=== PATIENT | female | born 1965 | race Caucasian/White ===

== ENCOUNTER 2020-07-11 10:21 | Emergency (ER) | payer MEDICAID ==
[~2020-07-11] VITALS: Ht 160 cm; Wt 76.5 kg
[~2020-07-11 10:21] MED LIST: CIPR-260 PO; PHEN-786 PO
[2020-07-11 11:32] LABS: CLARITY,URINE SLIGHTLY CLOUDY (Clear); COLOR,URINE STRAW (Yellow); GLUCOSE, URINE NEGATIVE (Neg); KETONES,URINE NEGATIVE (Neg); LEUKOCYTE ESTERASE ,URINE MODERATE (Neg); NITRITES, URINE NEGATIVE (Neg); OCCULT BLOOD,URINE SMALL (Neg); PH,URINE 5.5 (4.8-8.0); PROTEIN,URINE NEGATIVE (Neg); UROBILINOGEN,URINE 0.2 E.U/dL (0.2-1.0)
[2020-07-11 11:41] LABS: UA COLLECTION TYPE CLN CATCH MIDSTREAM
[2020-07-11 11:43] LABS: BACTERIA,URINE FEW /HPF (Neg); MUCUS STRANDS FEW /LPF (Neg); RBC,URINE 0-2 /HPF (0-2); SQUAMOUS EPITHELIAL CELL,UR FEW /LPF (FEW); WBC,URINE 20-30 /HPF (0-4)
[2020-07-11] MEDS ORDERED: ondansetron/PF 4mg/2ml inj IV ONE (11:45)
[2020-07-11] MEDS ORDERED: ketorolac trometh. 30mg/ml inj. IV ONE (11:45)
[2020-07-11] MEDS ORDERED: normal saline 1000ML IV soln IVB ONE (11:45)
[2020-07-11 12:18] LABS: BASOPHILS # (AUTO) 0.1 X10'3 (0-0.2); BASOPHILS % (AUTO) 0.5 % (0-1); EOSINOPHILS # (AUTO) 0.2 X10'3 (0-0.9); EOSINOPHILS % (AUTO) 2.4 % (0-6); HEMATOCRIT 37.5 % (35.0-45.0); HEMOGLOBIN 12.8 g/dl (12.0-16.0); LYMPHOCYTES # (AUTO) 1.1 X10'3 (1.1-4.8); MEAN CORPUSCULAR HEMOGLOBIN 32.4 PG (27.0-31.0); MEAN CORPUSCULAR VOLUME 95.2 FL (78-98); MEAN PLATELET VOLUME 8.7 FL (7.4-10.4); MONOCYTES # (AUTO) 1.1 X10'3 (0-0.9); MONOCYTES % (AUTO) 11.6 % (2-12); NEUTROPHILS # (AUTO) 7.2 X10'3 (1.8-7.7); NEUTROPHILS % (AUTO) 74.5 % (42-75); PLATELET COUNT 229 X10'3 (140-440); RED BLOOD COUNT 3.94 X10'6 (4.20-5.60); RED CELL DISTRIBUTION WIDTH 12.5 % (11.5-14.5); WHITE BLOOD COUNT 9.6 X10'3 (4.5-11.0)
[2020-07-11 12:29] LABS: MAGNESIUM 2.1 MG/DL (1.5-2.4)
[2020-07-11] MEDS ORDERED: CefTRIAXone/D5W-Rocephin 1gm 50 ML IV ONE (12:50)
[2020-07-11] MEDS ORDERED: acetaminophen 325mg tablet PO ONE (13:00)
[2020-07-11] MEDS ORDERED: FLO0.4C PO (13:30)
[2020-07-11] MEDS ORDERED: CIPR-259 PO (13:30)
[2020-07-11 13:53] VITALS: BP 131/86
== END 2020-07-11 13:55 | disposition home or self-care (01) ==
LOC: ER 10:21
DX: J06.9 Acute upper respiratory infection, unspecified (principal); N20.2 Calculus of kidney with calculus of ureter; Z98.890 Other specified postprocedural states; Z98.51 Tubal ligation status; Z79.899 Other long term (current) drug therapy
CPT/HCPCS: 36415; 76775; 81001; 83690; 83735; 85025; 87088; 96361; 96365; 96375; 99284; J0696; J1885; J2405; J7030

== ENCOUNTER 2022-06-17 02:45 | Inpatient (IN) | payer MEDICAID ==
[~2022-06-17] VITALS: Ht 160 cm; Wt 75.0 kg
[~2022-06-17 02:45] MED LIST changes: +CIPR-259 PO
[2022-06-17 03:30] LABS: BASOPHILS # (AUTO) 0.1 X10'3 (0-0.2); BASOPHILS % (AUTO) 0.7 % (0-1); EOSINOPHILS % (AUTO) 0.3 % (0-6); HEMATOCRIT 39.2 % (35.0-45.0); HEMOGLOBIN 13.6 g/dl (12.0-16.0); LYMPHOCYTES # (AUTO) 0.9 X10'3 (1.1-4.8); LYMPHOCYTES % (AUTO) 10.3 % (21-51); MEAN CORPUSCULAR HEMOGLOBIN 32.4 PG (27.0-31.0); MEAN CORPUSCULAR HGB CONC 34.6 g/dL (33.0-36.5); MEAN CORPUSCULAR VOLUME 93.7 FL (78-98); MEAN PLATELET VOLUME 9.3 FL (7.4-10.4); MONOCYTES # (AUTO) 0.4 X10'3 (0-0.9); MONOCYTES % (AUTO) 4.5 % (2-12); NEUTROPHILS # (AUTO) 7.6 X10'3 (1.8-7.7); NEUTROPHILS % (AUTO) 84.2 % (42-75); PLATELET COUNT 228 X10'3 (140-440); RED BLOOD COUNT 4.18 X10'6 (4.20-5.60); RED CELL DISTRIBUTION WIDTH 12.4 % (11.5-14.5); WHITE BLOOD COUNT 9.1 X10'3 (4.5-11.0)
[2022-06-17 03:46] LABS: ALANINE AMINOTRANSFERASE 44 U/L (12-78); ALBUMIN/GLOBULIN RATIO 1.2 (1.1-1.5); ALKALINE PHOSPHATASE 61 IU/L (46-116); ANION GAP 10 (8-16); ASPARTATE AMINO TRANSFERASE 26 U/L (10-37); BILIRUBIN,TOTAL 0.6 MG/DL (0.1-1.0); BLOOD UREA NITROGEN 10 MG/DL (7-18); BUN/CREATININE RATIO 13.2 (6.6-38.0); CALCIUM 8.4 MG/DL (8.5-10.1); CHLORIDE 96 MMOL/L (99-107); CREATININE 0.76 MG/DL (0.40-0.90); GLUCOSE 133 MG/DL (70-104); LIPASE 80 U/L (73-393); POTASSIUM 3.5 MMOL/L (3.5-5.1); SODIUM 129 MMOL/L (135-145); TOTAL CARBON DIOXIDE 22.8 MMOL/L (24-32); TOTAL PROTEIN 7.4 G/DL (6.4-8.2); eGFR 79 ML/MIN
[2022-06-17] MEDS ORDERED: ketorolac trometh. 30mg/ml inj. IV ONE (04:10)
[2022-06-17] MEDS ORDERED: ondansetron/PF 4mg/2ml inj IV ONE (04:10)
[2022-06-17] MEDS ORDERED: acetaminophen 325mg tablet PO ONE (04:10)
[2022-06-17] MEDS ORDERED: tamsulosin 0.4mg capsule PO ONE (04:10)
[2022-06-17 04:16] LABS: URINE HCG NEGATIVE (NEG)
[2022-06-17 04:17] LABS: CLARITY,URINE SLIGHTLY CLOUDY (Clear); COLOR,URINE YELLOW (Yellow); GLUCOSE, URINE NEGATIVE (Neg); KETONES,URINE TRACE mg/dl (Neg); LEUKOCYTE ESTERASE ,URINE TRACE (Neg); NITRITES, URINE NEGATIVE (Neg); OCCULT BLOOD,URINE TRACE-INTACT (Neg); PH,URINE 7.5 (4.8-8.0); PROTEIN,URINE NEGATIVE (Neg); UROBILINOGEN,URINE 0.2 E.U/dL (0.2-1.0)
[2022-06-17 04:22] LABS: UA COLLECTION TYPE CLN CATCH MIDSTREAM
[2022-06-17 04:24] LABS: BACTERIA,URINE FEW /HPF (Neg); MUCUS STRANDS FEW /LPF (Neg); SQUAMOUS EPITHELIAL CELL,UR FEW /LPF (FEW); WBC,URINE 30-50 /HPF (0-4)
[2022-06-17 04:25] LABS: WBC CLUMPS,URINE FEW /HPF (NEGATIVE)
[2022-06-17] MEDS ORDERED: CefTRIAXone/D5W-Rocephin 1gm 50 ML IV ONE (04:45)
[2022-06-17] MEDS ORDERED: normal saline 1000ml 1,000 ML IVB ONE (06:20)
[2022-06-17] MEDS ORDERED: morphine 2 MG/ML inj. syringe IV ONE (07:05)
[2022-06-17] MEDS ORDERED: morphine 2 MG/ML inj. syringe IV PRN ×2 (09:40)
[2022-06-17] MEDS ORDERED: ondansetron/PF 4mg/2ml inj IV PRN (09:40)
[2022-06-17] MEDS ORDERED: mag hydrox/Alum hydrox/simeth 30ml oral suspension PO PRN (09:40)
[2022-06-17] MEDS ORDERED: magnesium hydroxide 30ml (MOM) UD suspension PO PRN (09:40)
[2022-06-17] MEDS ORDERED: HYDROcodone/acetaminophen 5mg/325mg tablet PO PRN (09:40)
[2022-06-17] MEDS ORDERED: metoclopramide 5 mg/ml inj IV PRN (09:40)
[2022-06-17] MEDS ORDERED: acetaminophen 325mg tablet PO PRN ×2 (09:40)
[2022-06-17] MEDS: normal saline 1000ml 1,000 ML IV SCH ×2 (09:57→21:40)
[2022-06-17] MEDS: tamsulosin 0.4mg capsule PO SCH ×2 (09:57→20:22)
--- NOTE | 2022-06-17 12:27 | NUR ---
PT SLEEPING, APPEARS COMFORTABLE, NO S/S OF DISTRESS NOTED
[2022-06-17] MEDS ORDERED: NO HOME MEDS (13:07)
--- NOTE | 2022-06-17 13:58 | NUR ---
OR called, surgery will be done tomorrow. Ok to feed patient and make NPO at midnight per Dr. Gomez.
[2022-06-17] MEDS: HYDROcodone/acetaminophen 10/325mg tab PO PRN ×2 (14:48→22:36)
--- NOTE | 2022-06-17 14:58 | NUR ---
PATIENT PLACED ON HOSPITAL BED FOR COMFORT. WATER PITCHER AT BEDSIDE.
[2022-06-17] MEDS: docusate sod 100mg capsule PO SCH (20:22)
--- NOTE | 2022-06-17 22:36 | NUR ---
PT STATES SHE STARTING TO HURT AGAIN. PRN PO MED GIVEN
[2022-06-18] VITALS (18 sets, daily range): BP systolic 112–144; BP diastolic 57–85
--- NOTE | 2022-06-18 05:10 | NUR ---
IV ABX GIVEN BY RN
[2022-06-18] MEDS: CefTRIAXone/D5W-Rocephin 1gm 50 ML IV SCH (06:35)
[2022-06-18] MEDS: normal saline 1000ml 1,000 ML IV SCH ×2 (07:00→14:36)
--- NOTE | 2022-06-18 07:45 | NUR ---
REPORT GIVEN TO QUIANA RODRIGUEZ, PT TO GO TO ROOM 345A, PT IS ON HOSPITAL BED AND RN AWARE.
[2022-06-18] MEDS: docusate sod 100mg capsule PO SCH ×2 (08:00→19:47)
[2022-06-18 08:06] LABS: BASOPHILS % (AUTO) 0.4 % (0-1); EOSINOPHILS # (AUTO) 0.2 X10'3 (0-0.9); EOSINOPHILS % (AUTO) 1.8 % (0-6); HEMATOCRIT 35.2 % (35.0-45.0); HEMOGLOBIN 11.8 g/dl (12.0-16.0); LYMPHOCYTES % (AUTO) 10.3 % (21-51); MEAN CORPUSCULAR HEMOGLOBIN 31.9 PG (27.0-31.0); MEAN CORPUSCULAR HGB CONC 33.6 g/dL (33.0-36.5); MEAN CORPUSCULAR VOLUME 95.2 FL (78-98); MEAN PLATELET VOLUME 8.9 FL (7.4-10.4); MONOCYTES # (AUTO) 0.9 X10'3 (0-0.9); MONOCYTES % (AUTO) 9.1 % (2-12); NEUTROPHILS # (AUTO) 7.7 X10'3 (1.8-7.7); NEUTROPHILS % (AUTO) 78.4 % (42-75); PLATELET COUNT 181 X10'3 (140-440); RED CELL DISTRIBUTION WIDTH 12.9 % (11.5-14.5); WHITE BLOOD COUNT 9.8 X10'3 (4.5-11.0)
--- NOTE | 2022-06-18 08:22 | NUR ---
patient arrived to the floor. Vital signs stable.
[2022-06-18 08:23] LABS: ANION GAP 8 (8-16); BLOOD UREA NITROGEN 8 MG/DL (7-18); BUN/CREATININE RATIO 8.2 (6.6-38.0); CALCIUM 7.9 MG/DL (8.5-10.1); CHLORIDE 105 MMOL/L (99-107); CREATININE 0.98 MG/DL (0.40-0.90); GLUCOSE 115 MG/DL (70-104); POTASSIUM 3.4 MMOL/L (3.5-5.1); SODIUM 135 MMOL/L (135-145); eGFR 59 ML/MIN
[2022-06-18] MEDS ORDERED: morphine 4 MG/ML inj SYRINge IV PRN (08:30)
[2022-06-18] MEDS ORDERED: ondansetron/PF 4mg/2ml inj IV PRN (08:30)
[2022-06-18] MEDS ORDERED: ringers solution, lacted 1,000 ML IV SCH (08:30)
[2022-06-18] MEDS ORDERED: morphine 2 MG/ML inj. syringe IV PRN (08:30)
[2022-06-18] MEDS ORDERED: proCHLORperazine 10 MG/2 ml inj IV PRN (08:30)
[2022-06-18] MEDS ORDERED: meperidine/PF 25mg/ml syringe IV PRN ×3 (08:30)
--- NOTE | 2022-06-18 10:23 | NUR ---
Patient down to OR.
--- NOTE | 2022-06-18 10:39 | NUR ---
report called to disaster recovery specialist.
[2022-06-18] MEDS ORDERED: iohexol 350MG/ML 100ml bottle IV ONE (10:57)
[2022-06-18] MEDS ORDERED: sevoflurane 250ml liquid IH ONE (11:00)
[2022-06-18] MEDS ORDERED: fentaNYL/PF 50MCG/1 ML 2ML syringe ONE (11:15)
[2022-06-18] MEDS ORDERED: midazolam 1 mg/ML 2ml injection ONE (11:15)
[2022-06-18] MEDS ORDERED: propofol inj 20 ML IV ONE (11:16)
[2022-06-18] MEDS ORDERED: LIDOcaine 1%/PF 5ML 10 MG/ML VIAL ONE (11:16)
[2022-06-18] MEDS ORDERED: dexamethasone sod phosphate 4mg/ml inj. ONE (11:30)
[2022-06-18] MEDS ORDERED: ondansetron/PF 4mg/2ml inj ONE (11:30)
--- NOTE | 2022-06-18 11:48 | NUR ---
Received from OR via [facility] , accompanied by Anesthesiologist RISHABH and report given by Anesthesiolgist. PATIENT WITH 20GPIV IN RIGHT UE RUNNING LR AT 1200 CC PER ANESTHESIA REQUEST. DENIES PAIN AT THIS TIME. Addendum: 06/18/22 at 1158 by Agustin Saul RN, RN Amended: Links added.
--- NOTE | 2022-06-18 12:38 | NUR ---
Report called to receiving nurse. Transferred via SURGICAL BED WITH ONE BLANKET IN A BAG. NO OTHER Belongings . Special Issues communicated to receiving SURGICAL nurse.BED LOW, CALL LIGHT PRESENT. BLANKET PRESENT FOR PATIENT. MD PRESENT TO ASSESS PATIENT AT BEDSIDE. Addendum: 06/18/22 at 1243 by Agustin Saul RN, RN Amended: Links added.
--- NOTE | 2022-06-18 18:16 | NUR ---
Problems reprioritized. Patient report given, questions answered & plan of care reviewed with QUIANA Leavitt.
--- NOTE | 2022-06-18 18:52 | NUR ---
Patient in room [facility]. I have received report from ALISSA ARAYA and had the opportunity to ask questions and assume patient care.
[2022-06-18] MEDS: HYDROcodone/acetaminophen 10/325mg tab PO PRN (19:50)
[2022-06-18] MEDS ORDERED: potassium Cl 40MEQ/1/2NS 520ml 520 ML IV PRN (20:05)
[2022-06-18] MEDS ORDERED: magnesium 4gm in 100ml NS 100 ML IV PRN (20:05)
[2022-06-18] MEDS ORDERED: potassium Cl 20 mEq SR tablet PO PRN ×2 (20:05)
[2022-06-18] MEDS: tamsulosin 0.4mg capsule PO SCH (21:50)
[2022-06-19] MEDS: normal saline 1000ml 1,000 ML IV SCH (01:40)
[2022-06-19 02:00] VITALS: BP 126/73
[2022-06-19] MEDS: CefTRIAXone/D5W-Rocephin 1gm 50 ML IV SCH (04:57)
--- NOTE | 2022-06-19 05:22 | NUR ---
Student documentation: I have reviewed and agree with all interventions, assessments performed and documented by ARTUR MAHAJAN.
--- NOTE | 2022-06-19 05:23 | NUR ---
Student Medication Administration: For this medication-pass time frame, all medication were reviewed, dispensed, administered and documented per hospital policy by ARTUR MAHAJAN.
[2022-06-19 06:00] VITALS: BP 139/82
--- NOTE | 2022-06-19 06:26 | NUR ---
Problems reprioritized. Patient report given, questions answered & plan of care reviewed with MONA ARAYA.
[2022-06-19 07:05] LABS: BASOPHILS % (AUTO) 0.1 % (0-1); EOSINOPHILS % (AUTO) 0 % (0-6); HEMATOCRIT 32.9 % (35.0-45.0); HEMOGLOBIN 11.4 g/dl (12.0-16.0); LYMPHOCYTES # (AUTO) 0.8 X10'3 (1.1-4.8); LYMPHOCYTES % (AUTO) 6.4 % (21-51); MEAN CORPUSCULAR HEMOGLOBIN 32.2 PG (27.0-31.0); MEAN CORPUSCULAR HGB CONC 34.5 g/dL (33.0-36.5); MEAN CORPUSCULAR VOLUME 93.3 FL (78-98); MEAN PLATELET VOLUME 9.1 FL (7.4-10.4); MONOCYTES # (AUTO) 1.1 X10'3 (0-0.9); MONOCYTES % (AUTO) 8.9 % (2-12); NEUTROPHILS # (AUTO) 10.1 X10'3 (1.8-7.7); NEUTROPHILS % (AUTO) 84.6 % (42-75); PLATELET COUNT 198 X10'3 (140-440); RED BLOOD COUNT 3.52 X10'6 (4.20-5.60); RED CELL DISTRIBUTION WIDTH 12.6 % (11.5-14.5)
[2022-06-19 07:19] LABS: ALBUMIN 2.8 G/DL (3.4-5.0); ANION GAP 8 (8-16); BLOOD UREA NITROGEN 11 MG/DL (7-18); BUN/CREATININE RATIO 14.9 (6.6-38.0); CALCIUM 8.7 MG/DL (8.5-10.1); CHLORIDE 105 MMOL/L (99-107); CREATININE 0.74 MG/DL (0.40-0.90); GLUCOSE 135 MG/DL (70-104); POTASSIUM 3.4 MMOL/L (3.5-5.1); SODIUM 139 MMOL/L (135-145); TOTAL CARBON DIOXIDE 26.4 MMOL/L (24-32); eGFR 81 ML/MIN
[2022-06-19] MEDS: docusate sod 100mg capsule PO SCH (07:55)
[2022-06-19] MEDS ORDERED: K and/or MAG REPLACEMENT MC SCH (08:00)
[2022-06-19] MEDS ORDERED: POTA-207 PO (09:35)
[2022-06-19] MEDS ORDERED: tamsulosin capsule PO (09:35)
[2022-06-19] MEDS ORDERED: HYDR-3972 PO (09:35)
[2022-06-19] MEDS ORDERED: CEPH500C2 PO (09:37)
--- NOTE | 2022-06-19 10:44 | NUR ---
Pt was discharged by Janie Lyons RN and Sara WHITE. Went over discharge paperwork/meds/follow-up instructions with pt. Took out IV. No tele. Walked pt down to the lobby.
== END 2022-06-19 10:30 | disposition home or self-care (01) | DRG 463 ==
LOC: ER 02:46 → ED HOLD 09:41 → SUR 3N 06-18 08:16
PROVIDERS: ADMIT Internal Medicine; ATTEND Internal Medicine
PROC: BT1F1ZZ Fluoroscopy of Left Kidney, Ureter and Bladder using Low Osmolar Contrast (ICD-10-PCS; 2022-06-18)
PROC: 0T778DZ Dilation of Left Ureter with Intraluminal Device, Via Natural or Artificial Opening Endoscopic (ICD-10-PCS; principal; 2022-06-18 11:00)
DX: N13.6 Pyonephrosis (principal); E87.1 Hypo-osmolality and hyponatremia; E87.6 Hypokalemia; Z20.822 Contact with and (suspected) exposure to COVID-19; J44.9 Chronic obstructive pulmonary disease, unspecified; E66.9 Obesity, unspecified; Z98.891 History of uterine scar from previous surgery; Z98.51 Tubal ligation status; Z87.442 Personal history of urinary calculi; Z68.29 Body mass index [BMI] 29.0-29.9, adult
CPT/HCPCS: 36415; 74176; 76000; 80048; 80053; 81001; 81025; 82948; 83690; 83735; 85025; 87081; 87088; 87811; 96361; 96365; 96375; 99285; A4615; A4618; C1758; C1769; C2617; G0378; J0696; J1100; J1885; J2250; J2270; J2405; J2704; J3010; J3490; J7030; J7120; Q9967